=== PATIENT | female | born 1940 | race Caucasian/White ===

== ENCOUNTER 2018-01-02 18:26 | Emergency (ER) | payer MEDICARE, MEDICAID ==
[~2018-01-02] VITALS: Ht 165.1 cm; Wt 45.0 kg
[2018-01-02 20:37] VITALS: BP 136/85
== END 2018-01-02 21:23 | disposition home or self-care (01) ==
LOC: ER 18:27
DX: M79.89 Other specified soft tissue disorders (principal); Z86.73 Personal history of transient ischemic attack (TIA), and cerebral infarction without residual deficits
CPT/HCPCS: 93971; 99284